=== PATIENT | female | born 1970 | race Asian ===

== ENCOUNTER 2017-07-12 16:59 | Inpatient (IN) | payer BC, OTHER ==
[~2017-07-12] VITALS: Ht 149.9 cm; Wt 48.3 kg
[2017-07-12] MEDS ORDERED: LORazepam 2 MG/ML, 1ML ONE ×3 (17:36→21:22)
[2017-07-12] MEDS: LORazepam 2 MG/ML, 1ML IVPush PRN ×8 (17:47→22:25)
[2017-07-12] MEDS ORDERED: THIAMINE 100 MG/ML, 2ML ONE (17:48)
[2017-07-12] MEDS ORDERED: ONDANSETRON 2MG/ML, 2ML ONE ×2 (17:48→18:11)
[2017-07-12] MEDS ORDERED: PANTOPRAZOLE 40 MG IV ONE (17:49)
[2017-07-12] MEDS ORDERED: ONDANSETRON 2MG/ML, 2ML IVPush ONE ×2 (18:00→18:30)
[2017-07-12] MEDS ORDERED: SODIUM CHLORIDE FLUSH 10ML SYR IVF ONE (18:00)
[2017-07-12] MEDS ORDERED: THIAMINE 100 MG in SODIUM CHLORIDE 0.9% 50 ML IVPB ONE (18:00)
[2017-07-12] MEDS ORDERED: PANTOPRAZOLE 40 MG IV IVPush ONE (18:00)
[2017-07-12] MEDS ORDERED: SODIUM CHLORIDE 0.9% 1,000ML IVBOLUS ONE (18:00)
[2017-07-12 18:21] LABS: BASOPHILS # (AUTO) 0.01 x10^3/uL (0-0.1); BASOPHILS % (AUTO) 0 % (0-1); EOSINOPHILS % (AUTO) 0 % (1-7); LYMPHOCYTES # (AUTO) 0.42 x10^3/uL (1-3.4); LYMPHOCYTES % (AUTO) 11 % (22-44); MD NO; MEAN CORPUSCULAR HEMOGLOBIN 35.4 pg (27.0-34.8); MEAN CORPUSCULAR HGB CONC 34.5 g/dL (32.4-35.8); MEAN CORPUSCULAR VOLUME 102.5 fL (80-100); MEAN PLATELET VOLUME 8.1 fL (7.4-10.4); MONOCYTES # (AUTO) 0.21 x10^3/uL (0.2-0.8); MONOCYTES % (AUTO) 6 % (2-9); NEUTROPHILS # (AUTO) 3.06 x10^3/uL (1.8-6.8); NEUTROPHILS % (AUTO) 83 % (42-75); PLATELET COUNT 107 x10^3/uL (130-400); RED BLOOD COUNT 4.29 x10^6/uL (3.82-5.3); RED CELL DISTRIBUTION WIDTH 16.3 % (9.6-15.2)
[2017-07-12 18:27] LABS: INTERNATIONAL NORMALIZED RATIO 0.94 (0.93-1.1); PROTHROMBIN TIME 9.8 Seconds (9.6-11.5)
[2017-07-12 18:31] LABS: ALANINE AMINOTRANSFERASE 181 U/L (12-78); ANION GAP 19 mmol/L (5-15); CALCIUM 8.4 mg/dL (8.5-10.1); CHLORIDE 100 mmol/L (98-107); CREATININE 0.77 mg/dL (0.55-1.02)
[2017-07-12 18:35] LABS: ALKALINE PHOSPHATASE 214 U/L (45-117); BILIRUBIN,TOTAL 1.5 mg/dL (0.2-1.0); TOTAL PROTEIN 8.5 g/dL (6.4-8.2)
[2017-07-12] MEDS ORDERED: SODIUM CHLORIDE 0.9% 1,000 ML IV ONE (19:29)
[2017-07-12] MEDS ORDERED: LABETALOL 5MG/ML, 20ML IVPush ONE (19:30)
[2017-07-12] MEDS ORDERED: PROMETHAZINE 25 MG/ML, 1ML ONE (21:21)
[2017-07-12] MEDS ORDERED: LABETALOL 5MG/ML, 20ML ONE (21:21)
[2017-07-12] MEDS ORDERED: MORPHINE SULFATE 4 MG/ML, 1ML ONE ×2 (21:22→22:41)
[2017-07-12] MEDS ORDERED: MORPHINE SULFATE 4 MG/ML, 1ML IVPush PRN (21:30)
[2017-07-12] MEDS ORDERED: PROMETHAZINE 25 MG/ML, 1ML IM ONE (21:30)
[2017-07-12] MEDS ORDERED: ASPIRIN 81 MG TABLET CHEW PO ONE (22:00)
[2017-07-12] MEDS ORDERED: POTASSIUM CHLORIDE 20 MEQ, MAGNESIUM SULFATE 2 GM, THIAMINE 200 MG, MVI ADULT 10 ML, FO... IV SCH (22:07)
[2017-07-12] MEDS ORDERED: ONDANSETRON 2MG/ML, 2ML IVPush PRN (22:30)
[2017-07-12] MEDS ORDERED: BISACODYL 10 MG SUPP PR PRN (22:30)
[2017-07-12] MEDS ORDERED: hydrALAzine 20 MG/ML, 1ML IVPush PRN (22:30)
[2017-07-12] MEDS ORDERED: ASPIRIN 81 MG TABLET CHEW ONE (22:33)
[2017-07-12] MEDS: morphine SULFATE 10 MG/ML, 1ML IVPush PRN (22:38)
[2017-07-12 22:55] LABS: FOLATE LEVEL 11.6 ng/mL (3.1-17.5)
[2017-07-12 23:00] VITALS: BP 156/102
[2017-07-12 23:46] VITALS: BP 136/104
[2017-07-13] MEDS ORDERED: LORazepam 2 MG/ML, 1ML IVPush PRN
[2017-07-13] MEDS: CHLORDIAZEPOXIDE 25 MG CAPSULE PO PRN ×2 (00:12→07:47)
[2017-07-13 01:35] VITALS: BP 121/85
[2017-07-13] MEDS: morphine SULFATE 10 MG/ML, 1ML IVPush PRN (03:53)
[2017-07-13 05:14] LABS: MEAN CORPUSCULAR HGB CONC 34.6 g/dL (32.4-35.8); MEAN CORPUSCULAR VOLUME 101.2 fL (80-100); MEAN PLATELET VOLUME 7.9 fL (7.4-10.4); PLATELET COUNT 93 x10^3/uL (130-400); RED BLOOD COUNT 3.46 x10^6/uL (3.82-5.3); RED CELL DISTRIBUTION WIDTH 16.4 % (9.6-15.2)
[2017-07-13 05:23] LABS: ANION GAP 10 mmol/L (5-15); CALCIUM 8.3 mg/dL (8.5-10.1); CHLORIDE 110 mmol/L (98-107)
[2017-07-13 05:29] LABS: ALANINE AMINOTRANSFERASE 136 U/L (12-78); ALBUMIN 3.3 g/dL (3.4-5.0); ALKALINE PHOSPHATASE 170 U/L (45-117); BILIRUBIN,TOTAL 1.4 mg/dL (0.2-1.0); CREATININE 0.56 mg/dL (0.55-1.02)
[2017-07-13 05:32] VITALS: BP 124/90
[2017-07-13] MEDS: LORazepam 2 MG/ML, 1ML IVPush PRN (05:37)
[2017-07-13 06:03] LABS: BASOPHILS # (AUTO) 0.01 x10^3/uL (0-0.1); BASOPHILS % (AUTO) 0 % (0-1); EOSINOPHILS % (AUTO) 0 % (1-7); LYMPHOCYTES # (AUTO) 1.04 x10^3/uL (1-3.4); LYMPHOCYTES % (AUTO) 26 % (22-44); MONOCYTES # (AUTO) 0.38 x10^3/uL (0.2-0.8); MONOCYTES % (AUTO) 9 % (2-9); NEUTROPHILS # (AUTO) 2.63 x10^3/uL (1.8-6.8); NEUTROPHILS % (AUTO) 65 % (42-75)
[2017-07-13 06:32] LABS: MD SCAN
[2017-07-13 07:10] VITALS: BP 116/80
[2017-07-13] MEDS ORDERED: LACTATED RINGERS 1,000 ML IV SCH (08:30)
[2017-07-13] MEDS ORDERED: LORazepam 2 MG/ML, 1ML IV PRN ×3 (08:30)
[2017-07-13] MEDS ORDERED: LORazepam 1MG TABLET PO PRN ×3 (08:30)
[2017-07-13] MEDS ORDERED: LORazepam 0.5MG TABLET PO PRN (08:30)
[2017-07-13] MEDS: LORazepam 2 MG/ML, 1ML IV PRN ×2 (10:29→10:35)
[2017-07-13] MEDS ORDERED: POTASSIUM CHLORIDE 20 MEQ, MAGNESIUM SULFATE 2 GM, THIAMINE 200 MG, MVI ADULT 10 ML, FO... IV SCH (22:07)
== END 2017-07-13 11:00 | disposition left against medical advice (07) | DRG 432 ==
LOC: ED 17:50 → EDIP 21:32 → 4NOR 23:00
PROVIDERS: ADMIT Internal Medicine; ATTEND Internal Medicine
DX: K70.10 Alcoholic hepatitis without ascites (principal); K85.20 Alcohol induced acute pancreatitis without necrosis or infection; D69.6 Thrombocytopenia, unspecified; E87.2 Acidosis; E87.1 Hypo-osmolality and hyponatremia; I16.9 Hypertensive crisis, unspecified; F17.210 Nicotine dependence, cigarettes, uncomplicated; F10.10 Alcohol abuse, uncomplicated; D75.89 Other specified diseases of blood and blood-forming organs; Z53.21 Procedure and treatment not carried out due to patient leaving prior to being seen by health care provider; R73.9 Hyperglycemia, unspecified; R07.2 Precordial pain; I10 Essential (primary) hypertension; N28.89 Other specified disorders of kidney and ureter; Z79.82 Long term (current) use of aspirin; Z88.5 Allergy status to narcotic agent
CPT/HCPCS: 36415; 71045; 76700; 80053; 82607; 82746; 83690; 84484; 84703; 85025; 85610; 85730; 86850; 86900; 93005; 96361; 96365; 96372; 96375; 96376; J2405; J2550; J3411; J3475; J3480; J7042; C9113; J2060; J2270; J7030; J7120

== ENCOUNTER 2017-12-09 15:30 | Inpatient (IN) | payer MEDICAID ==
[~2017-12-09] VITALS: Ht 149.9 cm; Wt 49.7 kg
[2017-12-09] MEDS ORDERED: LORazepam 2 MG/ML, 1ML ONE ×2 (15:44→16:44)
[2017-12-09] MEDS: LORazepam 2 MG/ML, 1ML IVPush PRN ×2 (15:54→16:46)
[2017-12-09] MEDS ORDERED: PLEASE ENTER HEIGHT AND WEIGHT MC SCH (16:00)
[2017-12-09] MEDS ORDERED: SODIUM CHLORIDE 0.9% 1,000ML IVBOLUS ONE (16:00)
[2017-12-09] MEDS ORDERED: SODIUM CHLORIDE FLUSH 10ML SYR IVF ONE (16:00)
[2017-12-09 16:03] LABS: ALBUMIN 4.6 g/dL (3.4-5.0); CHLORIDE 93 mmol/L (98-107)
[2017-12-09 16:09] LABS: ALANINE AMINOTRANSFERASE 154 U/L (12-78); ALKALINE PHOSPHATASE 150 U/L (45-117); BILIRUBIN,TOTAL 1.6 mg/dL (0.2-1.0); TOTAL PROTEIN 9.3 g/dL (6.4-8.2)
[2017-12-09 16:17] LABS: ANION GAP 29 mmol/L (5-15); CALCIUM 7.6 mg/dL (8.5-10.1); CREATININE 1.31 mg/dL (0.55-1.02)
[2017-12-09 16:56] LABS: O2 FLOW ROOM AIR L/min
[2017-12-09 16:59] LABS: MEAN CORPUSCULAR HEMOGLOBIN 38.6 pg (27.0-34.8); MEAN CORPUSCULAR HGB CONC 33.1 g/dL (32.4-35.8); MEAN CORPUSCULAR VOLUME 116.7 fL (80-100); MEAN PLATELET VOLUME 8.9 fL (7.4-10.4); PLATELET COUNT 134 x10^3/uL (130-400); RED BLOOD COUNT 3.66 x10^6/uL (3.82-5.3); RED CELL DISTRIBUTION WIDTH 20.3 % (9.6-15.2)
[2017-12-09 17:01] LABS: MD YES
[2017-12-09 17:05] LABS: BAND#(MANUAL) 1.77 x10^3/uL; BANDS%(MANUAL) 17 % (0-7); LYMPH#(MANUAL) 1.25 x10^3/uL (1-3.4); LYMPHS% (MANUAL) 12 % (22-44); MONOS#(MANUAL) 0.52 x10^3/uL (0.3-2.7); MONOS% (MANUAL) 5 % (2-9)
[2017-12-09 17:06] LABS: MYELOCYTES% (MANUAL) 1 % (0-0); SEG#(MANUAL) 6.76 x10^3/uL (1.8-6.8); SEGS% (MANUAL) 65 % (42-75)
[2017-12-09 17:07] LABS: NRBC % (MANUAL) 1 % (0-1)
[2017-12-09 17:09] LABS: ANISOCYTOSIS 1+; POLYCHROMASIA 1+
[2017-12-09 17:10] LABS: <PLATELET ESTIMATE> ADEQUATE; <PLT MORPHOLOGY> NORMAL PLT MORPH
[2017-12-09] MEDS ORDERED: D5%-0.9% NACL 1,000 ML IV ONE (17:30)
[2017-12-09] MEDS ORDERED: THIAMINE 100MG TABLET PO ONE (17:30)
[2017-12-09] MEDS ORDERED: FOLIC ACID 1 MG TABLET PO ONE (17:30)
[2017-12-09] MEDS ORDERED: FOLIC ACID 1 MG in DEXTROSE 5% 50 ML IV SCH (17:30)
[2017-12-09] MEDS ORDERED: MAGNESIUM SULFATE 1 GM, THIAMINE 100 MG, FOLIC ACID 1 MG, MVI ADULT 10 ML in SODIUM CHL... IV ONE (17:30)
[2017-12-09] MEDS ORDERED: SODIUM CHLORIDE FLUSH 10ML SYR IVF PRN (17:30)
[2017-12-09 17:31] LABS: ACETONE, SERUM Large (80mg/dL) mg/dL (Negative)
[2017-12-09] MEDS: SODIUM BICARBONATE 8.4% 150 MEQ in DEXTROSE 5% 1,000 ML IV SCH (18:00)
[2017-12-09] MEDS ORDERED: POLYETHYLENE GLYCOL 17 GM PACKET PO PRN (18:30)
[2017-12-09] MEDS ORDERED: BISACODYL 10 MG SUPP PR PRN (18:30)
[2017-12-09] MEDS: THIAMINE 100 MG, MVI ADULT 10 ML, FOLIC ACID 1 MG in D5%-0.9% NACL 1,000 ML IV SCH (18:51)
[2017-12-09] MEDS ORDERED: INSULIN LISPRO 100 UNITS/ML, PEN SQ-INSULIN SCH (19:00)
[2017-12-09] MEDS ORDERED: THIAMINE 100MG TABLET ONE (19:00)
[2017-12-09 19:02] LABS: ANION GAP 26 mmol/L (5-15); CALCIUM 6.6 mg/dL (8.5-10.1); CHLORIDE 98 mmol/L (98-107); CREATININE 1.13 mg/dL (0.55-1.02)
[2017-12-09 19:05] LABS: TROPONIN I < 0.015 ng/mL (0.000-0.045)
[2017-12-09 19:20] LABS: HEMOGLOBIN A1C 4.3 % (4.2-6.3)
[2017-12-09] MEDS ORDERED: CALCIUM GLUCONATE 4.6 MEQ in SODIUM CHLORIDE 0.9% 50 ML IV ONE (20:00)
[2017-12-09] MEDS ORDERED: REGULAR INSULIN 62.5 UNITS in SODIUM CHLORIDE 0.9% 249.375 ML IV PRN (20:00)
[2017-12-09] MEDS: ERTAPENEM 1 GM in SODIUM CHLORIDE 0.9% 50 ML IV SCH (20:17)
[2017-12-09] MEDS: SODIUM CHLORIDE 0.9% 1,000 ML IV SCH (20:36)
[2017-12-09] MEDS: hydrALAzine 20 MG/ML, 1ML IVPush PRN (21:40)
[2017-12-09 21:42] LABS: INTERNATIONAL NORMALIZED RATIO 0.95 (0.93-1.1); PROTHROMBIN TIME 9.9 Seconds (9.6-11.5)
[2017-12-09 22:35] LABS: ANION GAP 24 mmol/L (5-15); CALCIUM 7.2 mg/dL (8.5-10.1); CHLORIDE 101 mmol/L (98-107); CREATININE 1.22 mg/dL (0.55-1.02)
[2017-12-09] MEDS: HEPARIN 5,000 UNITS/ML, 1ML SQ SCH (22:35)
[2017-12-10] MEDS: SODIUM CHLORIDE 0.9% 1,000 ML IV SCH ×2 (03:00→09:40)
[2017-12-10 04:00] VITALS: BP 124/76
[2017-12-10] MEDS: HEPARIN 5,000 UNITS/ML, 1ML SQ SCH ×3 (04:00→21:06)
[2017-12-10 04:05] LABS: ALANINE AMINOTRANSFERASE 94 U/L (12-78); ALKALINE PHOSPHATASE 92 U/L (45-117); ANION GAP 15 mmol/L (5-15); BILIRUBIN,TOTAL 1.3 mg/dL (0.2-1.0); CALCIUM 7.1 mg/dL (8.5-10.1); CHLORIDE 104 mmol/L (98-107); CREATININE 1.26 mg/dL (0.55-1.02); THYROID STIMULATING HORMONE 0.472 mIU/L (0.358-3.740); TOTAL PROTEIN 6.5 g/dL (6.4-8.2)
[2017-12-10] MEDS ORDERED: SODIUM PHOSPHATE 20 MMOL in SODIUM CHLORIDE 0.9% 500 ML IV ONE (05:00)
[2017-12-10 06:17] LABS: MEAN CORPUSCULAR HEMOGLOBIN 38.5 pg (27.0-34.8); MEAN CORPUSCULAR VOLUME 113.3 fL (80-100); RED BLOOD COUNT 2.71 x10^6/uL (3.82-5.3)
[2017-12-10] MEDS: SODIUM BICARBONATE 8.4% 150 MEQ in DEXTROSE 5% 1,000 ML IV SCH (06:36)
[2017-12-10 06:39] LABS: MD YES
[2017-12-10 06:40] LABS: PLATELET COUNT 65 x10^3/uL (130-400)
[2017-12-10 06:42] LABS: BAND#(MANUAL) 1.18 x10^3/uL; BANDS%(MANUAL) 20 % (0-7); LYMPH#(MANUAL) 0.59 x10^3/uL (1-3.4); LYMPHS% (MANUAL) 10 % (22-44); MONOS#(MANUAL) 0.47 x10^3/uL (0.3-2.7); MONOS% (MANUAL) 8 % (2-9); SEG#(MANUAL) 3.66 x10^3/uL (1.8-6.8); SEGS% (MANUAL) 62 % (42-75)
[2017-12-10 06:43] LABS: ANISOCYTOSIS 1+; POLYCHROMASIA 1+
[2017-12-10 06:44] LABS: <PLATELET ESTIMATE> DECREASED; <PLT MORPHOLOGY> NORMAL PLT MORPH
[2017-12-10] MEDS: PANTOPRAZOLE 40 MG IV IVPush SCH (08:17)
[2017-12-10] MEDS ORDERED: POTASSIUM PHOSPHATE 44 MEQ in SODIUM CHLORIDE 0.9% 500 ML IV ONE (08:30)
[2017-12-10] MEDS ORDERED: MAGNESIUM SULFATE 4 GM in SODIUM CHLORIDE 0.9% 100 ML IV ONE (08:30)
[2017-12-10 08:55] LABS: FIO2 ROOM AIR %
[2017-12-10] MEDS ORDERED: MAGNESIUM SULFATE PMX 4GM/100M 100 ML IV ONE (09:00)
[2017-12-10 09:08] LABS: ANION GAP 12 mmol/L (5-15); CALCIUM 6.7 mg/dL (8.5-10.1); CHLORIDE 108 mmol/L (98-107); CREATININE 1.16 mg/dL (0.55-1.02)
[2017-12-10] MEDS ORDERED: POTASSIUM CHLORIDE 40 MEQ in SODIUM CHLORIDE 0.9% 1,000 ML IV SCH (11:43)
[2017-12-10] MEDS ORDERED: PROPOFOL 10 MG/ML, 20ML ONE (11:44)
[2017-12-10] MEDS ORDERED: GLYCOPYRROLATE 0.2MG/1ML, 5ML ONE (11:44)
[2017-12-10] MEDS ORDERED: NEOSTIGMINE 1 MG/ML, 10ML ONE (11:44)
[2017-12-10] MEDS ORDERED: ROCURONIUM 10 MG/ML,10ML ONE (11:44)
[2017-12-10] MEDS ORDERED: PHENYLEPHRINE 10 MG/ML ONE (11:44)
[2017-12-10] MEDS ORDERED: ONDANSETRON 2MG/ML, 2ML ONE (11:44)
[2017-12-10] MEDS ORDERED: MIDAZOLAM 1 MG/ML, 2ML ONE (11:46)
[2017-12-10] MEDS ORDERED: FENTANYL PF 250 MCG/5ML ONE (11:47)
[2017-12-10] MEDS ORDERED: hydrALAzine 20 MG/ML, 1ML IV PRN (12:30)
[2017-12-10] MEDS ORDERED: OXYcodone 5 MG/5 ML ORAL.SOL UDC PO PRN (12:30)
[2017-12-10] MEDS ORDERED: HALOPERIDOL 5 MG/ML IV PRN (12:30)
[2017-12-10] MEDS ORDERED: FENTANYL PF 100 MCG/2ML IV PRN (12:30)
[2017-12-10] MEDS ORDERED: MEPERIDINE/PF 25MG/0.5ML IVPush PRN (12:30)
[2017-12-10] MEDS ORDERED: HYDROmorphone 1 MG/ML, 1ML IV PRN (12:30)
[2017-12-10] MEDS ORDERED: PROMETHAZINE 25 MG/ML, 1ML IV PRN (12:30)
[2017-12-10] MEDS ORDERED: LABETALOL 5MG/ML, 20ML IV PRN (12:30)
[2017-12-10] MEDS ORDERED: LORazepam 2 MG/ML, 1ML IVPush PRN (12:30)
[2017-12-10] MEDS ORDERED: OMNIPAQUE 350 MG/ML, 50 ML BOTTLE ONE (13:00)
[2017-12-10] MEDS ORDERED: INDOMETHACIN 50 MG SUPP.RECT ONE (13:07)
[2017-12-10] MEDS ORDERED: INDOMETHACIN 50 MG SUPP.RECT PR ONE (13:30)
[2017-12-10] MEDS: POTASSIUM CHLORIDE 40 MEQ in SODIUM CHLORIDE 0.9% 1,000 ML IV SCH ×2 (14:37→21:41)
[2017-12-10] MEDS: hydrALAzine 20 MG/ML, 1ML IVPush PRN (16:16)
[2017-12-10 18:47] LABS: ANION GAP 13 mmol/L (5-15); CALCIUM 6.4 mg/dL (8.5-10.1); CHLORIDE 113 mmol/L (98-107); CREATININE 1.13 mg/dL (0.55-1.02)
[2017-12-10 18:48] LABS: MICROSCOPIC INDICATED
[2017-12-10 18:57] LABS: AMPHETAMINE SCREEN, URINE Negative (Negative); BARBITURATE SCREEN, URINE Negative (Negative); BENZODIAZEPINE SCREEN, URINE Positive (Negative); CANNABINOID SCREEN, URINE Negative (Negative); COCAINE SCREEN, URINE Negative (Negative); METHADONE SCREEN, URINE Negative (Negative); OPIATE SCREEN, URINE Negative (Negative)
[2017-12-10] MEDS: ERTAPENEM 1 GM in SODIUM CHLORIDE 0.9% 50 ML IV SCH (21:05)
[2017-12-10] MEDS: morphine SULFATE 10 MG/ML, 1ML IVPush PRN (23:02)
[2017-12-11] MEDS: morphine SULFATE 10 MG/ML, 1ML IVPush PRN ×2 (00:12→17:49)
[2017-12-11 04:00] VITALS: BP 121/89
[2017-12-11] MEDS: HEPARIN 5,000 UNITS/ML, 1ML SQ SCH (04:00)
[2017-12-11 04:43] LABS: MEAN CORPUSCULAR HEMOGLOBIN 39.6 pg (27.0-34.8); MEAN CORPUSCULAR HGB CONC 34.8 g/dL (32.4-35.8); RED BLOOD COUNT 2.37 x10^6/uL (3.82-5.3); RED CELL DISTRIBUTION WIDTH 20.5 % (9.6-15.2)
[2017-12-11 04:47] LABS: ALANINE AMINOTRANSFERASE 72 U/L (12-78); ALBUMIN 2.5 g/dL (3.4-5.0); ANION GAP 9 mmol/L (5-15); CALCIUM 6.5 mg/dL (8.5-10.1); CHLORIDE 118 mmol/L (98-107); CREATININE 1.04 mg/dL (0.55-1.02)
[2017-12-11 04:49] LABS: ALKALINE PHOSPHATASE 105 U/L (45-117); BILIRUBIN,TOTAL 0.6 mg/dL (0.2-1.0); TOTAL PROTEIN 5.6 g/dL (6.4-8.2)
[2017-12-11 04:56] LABS: MD YES; MEAN PLATELET VOLUME 8.6 fL (7.4-10.4); PLATELET COUNT 50 x10^3/uL (130-400)
[2017-12-11 05:01] LABS: BAND#(MANUAL) 0.41 x10^3/uL; BANDS%(MANUAL) 9 % (0-7); LYMPH#(MANUAL) 0.95 x10^3/uL (1-3.4); LYMPHS% (MANUAL) 21 % (22-44); MONOS#(MANUAL) 0.41 x10^3/uL (0.3-2.7); MONOS% (MANUAL) 9 % (2-9); SEG#(MANUAL) 2.75 x10^3/uL (1.8-6.8); SEGS% (MANUAL) 61 % (42-75)
[2017-12-11 05:02] LABS: <PLATELET ESTIMATE> DECREASED; <PLT MORPHOLOGY> NORMAL PLT MORPH; ANISOCYTOSIS 1+; POLYCHROMASIA 1+
[2017-12-11] MEDS: THIAMINE 100 MG, MVI ADULT 10 ML, FOLIC ACID 1 MG in D5%-0.9% NACL 1,000 ML IV SCH (05:37)
[2017-12-11] MEDS: PANTOPRAZOLE 40 MG IV IVPush SCH (07:30)
[2017-12-11 08:30] VITALS: BP 154/90
[2017-12-11 10:35] LABS: HIT RESULT NEGATIVE (NEGATIVE)
[2017-12-11] MEDS: ACETAMINOPHEN 325 MG TABLET PO PRN (12:05)
[2017-12-11 14:30] VITALS: BP 149/86
[2017-12-11] MEDS: hydrALAzine 20 MG/ML, 1ML IVPush PRN (17:42)
[2017-12-11 19:35] VITALS: BP 165/97
[2017-12-11] MEDS: ERTAPENEM 1 GM in SODIUM CHLORIDE 0.9% 50 ML IV SCH (20:18)
[2017-12-11] MEDS: ONDANSETRON 2MG/ML, 2ML IVPush PRN (22:27)
[2017-12-12] VITALS (7 sets, daily range): BP systolic 138–185; BP diastolic 85–108
[2017-12-12] MEDS: hydrALAzine 20 MG/ML, 1ML IVPush PRN ×2 (04:07→10:56)
[2017-12-12] MEDS ORDERED: THIAMINE 100 MG, MVI ADULT 10 ML, FOLIC ACID 1 MG in D5%-0.9% NACL 1,000 ML IV SCH (05:00)
[2017-12-12 05:28] LABS: ALBUMIN 2.5 g/dL (3.4-5.0); ANION GAP 8 mmol/L (5-15); CHLORIDE 114 mmol/L (98-107)
[2017-12-12 05:30] LABS: MEAN CORPUSCULAR HGB CONC 34.9 g/dL (32.4-35.8); MEAN CORPUSCULAR VOLUME 114.6 fL (80-100); MEAN PLATELET VOLUME 8.5 fL (7.4-10.4); PLATELET COUNT 59 x10^3/uL (130-400); RED CELL DISTRIBUTION WIDTH 20.2 % (9.6-15.2)
[2017-12-12 05:35] LABS: ALANINE AMINOTRANSFERASE 60 U/L (12-78); ALKALINE PHOSPHATASE 97 U/L (45-117); BILIRUBIN,TOTAL 0.6 mg/dL (0.2-1.0); CALCIUM 7.4 mg/dL (8.5-10.1); CREATININE 0.75 mg/dL (0.55-1.02); TOTAL PROTEIN 5.6 g/dL (6.4-8.2)
[2017-12-12 06:24] LABS: MD YES
[2017-12-12 06:26] LABS: SEG#(MANUAL) 2.57 x10^3/uL (1.8-6.8); SEGS% (MANUAL) 66 % (42-75)
[2017-12-12 06:27] LABS: ANISOCYTOSIS 1+; BAND#(MANUAL) 0.08 x10^3/uL; BANDS%(MANUAL) 2 % (0-7); LYMPH#(MANUAL) 0.82 x10^3/uL (1-3.4); LYMPHS% (MANUAL) 21 % (22-44); MONOS#(MANUAL) 0.43 x10^3/uL (0.3-2.7); MONOS% (MANUAL) 11 % (2-9)
[2017-12-12 06:28] LABS: <PLATELET ESTIMATE> DECREASED; <PLT MORPHOLOGY> NORMAL PLT MORPH
[2017-12-12] MEDS: morphine SULFATE 10 MG/ML, 1ML IVPush PRN ×3 (07:58→21:04)
[2017-12-12] MEDS: PANTOPRAZOLE 40 MG IV IVPush SCH (07:58)
[2017-12-12] MEDS ORDERED: POTASSIUM PHOSPHATE 44 MEQ in SODIUM CHLORIDE 0.9% 500 ML IV ONE (09:30)
[2017-12-12] MEDS: HEPARIN 5,000 UNITS/ML, 1ML SQ SCH (21:03)
[2017-12-12] MEDS: ONDANSETRON 2MG/ML, 2ML IVPush PRN (21:04)
[2017-12-13] VITALS (8 sets, daily range): BP systolic 147–193; BP diastolic 83–105
[2017-12-13] MEDS: hydrALAzine 20 MG/ML, 1ML IVPush PRN ×2 (00:38→08:51)
[2017-12-13] MEDS: THIAMINE 200 MG, MVI ADULT 10 ML, FOLIC ACID 1 MG in D5%-0.9% NACL 1,000 ML IV SCH (04:40)
[2017-12-13 04:56] LABS: ALKALINE PHOSPHATASE 98 U/L (45-117); BILIRUBIN,TOTAL 0.6 mg/dL (0.2-1.0); TOTAL PROTEIN 5.8 g/dL (6.4-8.2)
[2017-12-13 05:16] LABS: ALANINE AMINOTRANSFERASE 58 U/L (12-78); ALBUMIN 2.6 g/dL (3.4-5.0); ANION GAP 8 mmol/L (5-15); CALCIUM 7.6 mg/dL (8.5-10.1); CHLORIDE 113 mmol/L (98-107); CREATININE 0.69 mg/dL (0.55-1.02)
[2017-12-13] MEDS: HEPARIN 5,000 UNITS/ML, 1ML SQ SCH ×3 (05:20→22:00)
[2017-12-13] MEDS: ONDANSETRON 2MG/ML, 2ML IVPush PRN ×2 (05:26→19:49)
[2017-12-13] MEDS: morphine SULFATE 10 MG/ML, 1ML IVPush PRN ×3 (08:27→19:49)
[2017-12-13] MEDS: OMEPRAZOLE 20 MG CAPSULE.DR PO SCH (08:27)
[2017-12-13] MEDS ORDERED: LISINOPRIL 10 MG TABLET PO SCH (09:00)
[2017-12-13] MEDS ORDERED: POTASSIUM CHLORIDE 40 MEQ in SODIUM CHLORIDE 0.9% 500 ML IV ONE ×2 (09:00→17:00)
[2017-12-13] MEDS: FOLIC ACID 1 MG TABLET PO SCH (09:40)
[2017-12-13] MEDS: MULTIVITAMIN 1 TABLET PO SCH (09:41)
[2017-12-14] MEDS: morphine SULFATE 10 MG/ML, 1ML IVPush PRN ×3 (01:12→15:35)
[2017-12-14 01:25] VITALS: BP 168/96
[2017-12-14 02:18] VITALS: BP 163/93
[2017-12-14 05:21] LABS: CHLORIDE 114 mmol/L (98-107)
[2017-12-14 05:26] LABS: ANION GAP 9 mmol/L (5-15); CALCIUM 7.6 mg/dL (8.5-10.1); CREATININE 0.72 mg/dL (0.55-1.02)
[2017-12-14] MEDS: THIAMINE 200 MG, MVI ADULT 10 ML, FOLIC ACID 1 MG in D5%-0.9% NACL 1,000 ML IV SCH (05:28)
[2017-12-14] MEDS: HEPARIN 5,000 UNITS/ML, 1ML SQ SCH ×3 (05:28→23:13)
[2017-12-14] MEDS ORDERED: MAGNESIUM SULFATE PMX 2GM/50ML 50 ML IV ONE (07:00)
[2017-12-14 07:21] VITALS: BP 186/114
[2017-12-14 08:17] VITALS: BP 168/92
[2017-12-14] MEDS: MAGNESIUM CHLORIDE 64 MG TABLET.DR PO SCH ×2 (08:20→19:35)
[2017-12-14] MEDS: OMEPRAZOLE 20 MG CAPSULE.DR PO SCH (08:20)
[2017-12-14] MEDS: FOLIC ACID 1 MG TABLET PO SCH (08:21)
[2017-12-14] MEDS: LISINOPRIL 20 MG TABLET PO SCH (08:21)
[2017-12-14] MEDS: MULTIVITAMIN 1 TABLET PO SCH (08:21)
[2017-12-14 12:48] VITALS: BP 137/76
[2017-12-14 19:27] VITALS: BP 184/104
[2017-12-15 01:24] VITALS: BP 167/93
[2017-12-15] MEDS: THIAMINE 200 MG, MVI ADULT 10 ML, FOLIC ACID 1 MG in D5%-0.9% NACL 1,000 ML IV SCH (04:34)
[2017-12-15] MEDS ORDERED: LISI2.5T PO (04:44)
[2017-12-15] MEDS ORDERED: amlodipine (04:44)
[2017-12-15] MEDS: ACETAMINOPHEN 325 MG TABLET PO PRN (04:49)
[2017-12-15 07:32] VITALS: BP 170/94
[2017-12-15] MEDS: MAGNESIUM CHLORIDE 64 MG TABLET.DR PO SCH (08:26)
[2017-12-15] MEDS: MULTIVITAMIN 1 TABLET PO SCH (08:26)
[2017-12-15] MEDS: OMEPRAZOLE 20 MG CAPSULE.DR PO SCH (08:26)
[2017-12-15] MEDS: HEPARIN 5,000 UNITS/ML, 1ML SQ SCH ×2 (08:27→13:10)
[2017-12-15] MEDS: LISINOPRIL 20 MG TABLET PO SCH (08:27)
[2017-12-15] MEDS: FOLIC ACID 1 MG TABLET PO SCH (08:27)
[2017-12-15] MEDS ORDERED: MULT1TAB60 PO (11:48)
[2017-12-15] MEDS ORDERED: AMLO5TAB2 PO (11:48)
[2017-12-15] MEDS ORDERED: OMEP-110 PO (11:48)
[2017-12-15] MEDS ORDERED: THIA100T10 PO (11:48)
[2017-12-15] MEDS ORDERED: LISI-170 PO (11:48)
[2017-12-15] MEDS ORDERED: FOLI-17 PO (11:48)
[2017-12-15] MEDS ORDERED: AMLODIPINE 5 MG TABLET PO SCH (12:00)
[2017-12-15 12:18] VITALS: BP 172/95
[2017-12-15 12:26] VITALS: BP 168/89
== END 2017-12-15 13:54 | disposition home or self-care (01) | DRG 432 ==
LOC: ED 16:08 → EDIP 17:20 → CCU 19:45 → 3NE 12-11 12:37 → DCLOUNGE 12-15 13:32
PROVIDERS: ADMIT Hospitalist; ATTEND Hospitalist
PROC: BF141ZZ Fluoroscopy of Gallbladder, Bile Ducts and Pancreatic Ducts using Low Osmolar Contrast (ICD-10-PCS; 2017-12-10)
PROC: 0DJ08ZZ Inspection of Upper Intestinal Tract, Via Natural or Artificial Opening Endoscopic (ICD-10-PCS; 2017-12-10)
PROC: 0FJB8ZZ Inspection of Hepatobiliary Duct, Via Natural or Artificial Opening Endoscopic (ICD-10-PCS; principal; 2017-12-10 13:15)
DX: K70.10 Alcoholic hepatitis without ascites (principal); N17.0 Acute kidney failure with tubular necrosis; K85.20 Alcohol induced acute pancreatitis without necrosis or infection; E87.2 Acidosis; E87.1 Hypo-osmolality and hyponatremia; F10.239 Alcohol dependence with withdrawal, unspecified; N39.0 Urinary tract infection, site not specified; K76.0 Fatty (change of) liver, not elsewhere classified; I10 Essential (primary) hypertension; F17.200 Nicotine dependence, unspecified, uncomplicated; R73.9 Hyperglycemia, unspecified; D75.89 Other specified diseases of blood and blood-forming organs; D72.829 Elevated white blood cell count, unspecified; F41.9 Anxiety disorder, unspecified; E88.89 Other specified metabolic disorders; D69.6 Thrombocytopenia, unspecified; R74.0 Nonspecific elevation of levels of transaminase and lactic acid dehydrogenase [LDH]; K82.8 Other specified diseases of gallbladder; Z79.899 Other long term (current) drug therapy; Z88.5 Allergy status to narcotic agent
CPT/HCPCS: 36415; 36600; 74328; 99285; J3490; J7042; 71045; 74176; 76700; 80048; 80053; 80307; 81001; 82010; 82607; 82803; 82962; 83036; 83605; 83690; 83735; 84100; 84443; 84478; 84484; 84703; 85025; 85610; 86022; 86706; 86803; 87040; 87081; 87340; 93005; J0610; J1335; J1644; J1815; J2250; J2405; J2704; J2710; J3010; J3411; J3480; J7070; Q9967; C1769; C9113; J0360; J2060; J2270; J2370; J3475; J7030; J7040; J7050

== ENCOUNTER 2019-04-29 12:09 | Inpatient (IN) | payer MEDICAID ==
[~2019-04-29] VITALS: Ht 149.9 cm; Wt 45.6 kg
[~2019-04-29 12:09] MED LIST: AMLO-150 PO; FOLI-17 PO; LISI-170 PO; LISI2.5T PO; MULT1TAB60 PO; OMEP-110 PO; THIA100T10 PO; amlodipine
[2019-04-29 13:40] LABS: BASOPHILS # (AUTO) 0.02 x10^3/uL (0-0.1); BASOPHILS % (AUTO) 0 % (0-1); EOSINOPHILS % (AUTO) 0 % (1-7); LYMPHOCYTES # (AUTO) 1.41 x10^3/uL (1-3.4); LYMPHOCYTES % (AUTO) 19 % (22-44); MD NO; MEAN CORPUSCULAR HEMOGLOBIN 33.8 pg (27.0-34.8); MEAN CORPUSCULAR HGB CONC 33.8 g/dL (32.4-35.8); MEAN CORPUSCULAR VOLUME 100.2 fL (80-100); MEAN PLATELET VOLUME 7.2 fL (7.4-10.4); MONOCYTES # (AUTO) 0.31 x10^3/uL (0.2-0.8); MONOCYTES % (AUTO) 4 % (2-9); NEUTROPHILS # (AUTO) 5.86 x10^3/uL (1.8-6.8); NEUTROPHILS % (AUTO) 77 % (42-75); PLATELET COUNT 239 x10^3/uL (130-400); RED BLOOD COUNT 4.19 x10^6/uL (3.82-5.3); RED CELL DISTRIBUTION WIDTH 13.9 % (9.6-15.2)
[2019-04-29 13:49] LABS: ALANINE AMINOTRANSFERASE 89 U/L (12-78); ALBUMIN 3.7 g/dL (3.4-5.0); ANION GAP 16 mmol/L (5-15); CHLORIDE 101 mmol/L (98-107)
[2019-04-29 13:51] LABS: ALKALINE PHOSPHATASE 96 U/L (45-117); BILIRUBIN,TOTAL 0.6 mg/dL (0.2-1.0); TOTAL PROTEIN 7.5 g/dL (6.4-8.2)
--- NOTE | 2019-04-29 13:54 | NUR ---
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
--- NOTE | 2019-04-29 14:01 | NUR ---
PT HAS CO ABDOMINAL PAIN AND N/V FOR 1 WEEK. PT STATES SYMPTOMS WORSENED TODAY, MID ABDOMINAL PAIN W PALPITATION. PT AMBULATED TO BATHROOM FOR UA. DENIES SOB, CP.
[2019-04-29] MEDS ORDERED: HYDROmorphone 2 MG/ML, 1ML ONE ×3 (14:20→22:33)
[2019-04-29] MEDS ORDERED: ONDANSETRON 2MG/ML, 2ML ONE (14:20)
[2019-04-29] MEDS ORDERED: HYDROmorphone 2 MG/ML, 1ML IVPush PRN (14:30)
[2019-04-29] MEDS ORDERED: ONDANSETRON 2MG/ML, 2ML IVPush ONE (14:30)
[2019-04-29] MEDS ORDERED: SODIUM CHLORIDE 0.9% 1,000ML IVBOLUS ONE (14:30)
[2019-04-29] MEDS ORDERED: SODIUM CHLORIDE FLUSH 10ML SYR IVF ONE (14:30)
[2019-04-29 14:32] LABS: MICROSCOPIC INDICATED
[2019-04-29 14:44] LABS: CULTURE INDICATED? NO
[2019-04-29] MEDS ORDERED: BUTALB/APAP/CAFFEINE 50MG/325MG/40MG PO PRN (15:00)
[2019-04-29] MEDS ORDERED: POLYETHYLENE GLYCOL 17 GM PACKET PO PRN (15:00)
[2019-04-29] MEDS ORDERED: GUAIFENESIN/DM 200-20MG, 10ML UDC PO PRN (15:00)
[2019-04-29] MEDS ORDERED: LABETALOL 5MG/ML, 20ML IVPush PRN (15:00)
[2019-04-29] MEDS: NICOTINE 21 MG/24 HR PATCH.TD24 TD SCH (15:00)
[2019-04-29] MEDS ORDERED: ONDANSETRON ODT 4 MG PO PRN (15:00)
--- NOTE | 2019-04-29 15:13 | NUR ---
THROUGHPUT RN: PT W/ MEDICAID SILVERSUMMIT INSURANCE. SPOKE W/ RERE FROM [facility] WHO DECLINED PT TRANSFER. SPOKE W/ MARIBEL AT [facility] WHO DECLINED TRANSFER. PSN FAXED TO [phone]. CONFIRMATION RECEIVED.
[2019-04-29] MEDS ORDERED: TRAZ-96 PO (15:21)
[2019-04-29] MEDS ORDERED: ALPR0.5T7 PO (15:21)
[2019-04-29] MEDS ORDERED: GABA300C10 PO (15:21)
--- NOTE | 2019-04-29 15:35 | NUR ---
REPORT TO VENITA
[2019-04-29] MEDS: D5%-0.45% NACL 1,000 ML IV SCH (16:08)
[2019-04-29] MEDS: KETOROLAC 30 MG/1 ML IV PRN ×2 (16:32→23:26)
[2019-04-29] MEDS: ONDANSETRON 2MG/ML, 2ML IVPush PRN ×2 (16:32→22:36)
[2019-04-29 16:37] VITALS: BP 159/86
[2019-04-29] MEDS: HYDROmorphone 1 MG/ML, 1ML INJ IV PRN ×2 (18:32→22:37)
[2019-04-29 18:53] VITALS: BP 124/77
[2019-04-29] MEDS: LACTULOSE 10 GM/15 ML UDC PO SCH (20:35)
[2019-04-29] MEDS: TRAZODONE 50MG TABLET PO PRN (20:35)
[2019-04-29] MEDS: BACLOFEN 10 MG TABLET PO PRN (20:38)
[2019-04-30 00:35] VITALS: BP 132/82
[2019-04-30] MEDS: D5%-0.45% NACL 1,000 ML IV SCH ×3 (00:57→20:24)
[2019-04-30] MEDS ORDERED: HYDROmorphone 2 MG/ML, 1ML ONE ×4 (02:16→15:39)
[2019-04-30] MEDS: HYDROmorphone 1 MG/ML, 1ML INJ IV PRN ×4 (02:21→15:42)
[2019-04-30] MEDS: ONDANSETRON 2MG/ML, 2ML IVPush PRN (04:38)
[2019-04-30 05:56] LABS: BASOPHILS # (AUTO) 0.01 x10^3/uL (0-0.1); BASOPHILS % (AUTO) 0 % (0-1); EOSINOPHILS # (AUTO) 0.01 x10^3/uL (0-0.4); EOSINOPHILS % (AUTO) 0 % (1-7); LYMPHOCYTES # (AUTO) 1.47 x10^3/uL (1-3.4); LYMPHOCYTES % (AUTO) 25 % (22-44); MD NO; MEAN CORPUSCULAR HEMOGLOBIN 33.5 pg (27.0-34.8); MEAN CORPUSCULAR HGB CONC 33.4 g/dL (32.4-35.8); MEAN CORPUSCULAR VOLUME 100.3 fL (80-100); MEAN PLATELET VOLUME 7.6 fL (7.4-10.4); MONOCYTES # (AUTO) 0.57 x10^3/uL (0.2-0.8); MONOCYTES % (AUTO) 10 % (2-9); NEUTROPHILS % (AUTO) 65 % (42-75); PLATELET COUNT 180 x10^3/uL (130-400); RED BLOOD COUNT 3.84 x10^6/uL (3.82-5.3); RED CELL DISTRIBUTION WIDTH 14.2 % (9.6-15.2)
[2019-04-30 06:08] LABS: CHLORIDE 106 mmol/L (98-107)
[2019-04-30 06:12] LABS: ALBUMIN 3.3 g/dL (3.4-5.0); ANION GAP 8 mmol/L (5-15); CALCIUM 7.2 mg/dL (8.5-10.1); CREATININE 0.66 mg/dL (0.55-1.02)
[2019-04-30 06:15] VITALS: BP 185/108
[2019-04-30] MEDS: hydrALAzine 20 MG/ML, 1ML IVPush PRN (06:30)
[2019-04-30] MEDS ORDERED: CALCIUM GLUCONATE 4.6 MEQ in SODIUM CHLORIDE 0.9% 50 ML IV ONE (06:30)
[2019-04-30] MEDS ORDERED: POTASSIUM PHOSPHATE 44 MEQ in SODIUM CHLORIDE 0.9% 500 ML IV ONE (06:30)
[2019-04-30] MEDS: LACTULOSE 10 GM/15 ML UDC PO SCH ×2 (09:00→20:12)
[2019-04-30] MEDS: KETOROLAC 30 MG/1 ML IV PRN ×2 (09:14→20:11)
[2019-04-30 12:43] VITALS: BP 142/82
[2019-04-30] MEDS: NICOTINE 21 MG/24 HR PATCH.TD24 TD SCH (14:34)
[2019-04-30 18:35] VITALS: BP 156/89
[2019-04-30] MEDS: TRAZODONE 50MG TABLET PO PRN (20:12)
[2019-04-30] MEDS: BACLOFEN 10 MG TABLET PO PRN (20:12)
[2019-05-01 00:24] VITALS: BP 178/111
[2019-05-01] MEDS ORDERED: HYDROmorphone 2 MG/ML, 1ML ONE (00:41)
[2019-05-01] MEDS: HYDROmorphone 1 MG/ML, 1ML INJ IV PRN (00:44)
[2019-05-01] MEDS: hydrALAzine 20 MG/ML, 1ML IVPush PRN (00:45)
[2019-05-01 02:29] VITALS: BP 113/72
[2019-05-01 06:03] LABS: ALBUMIN 3.1 g/dL (3.4-5.0); ANION GAP 6 mmol/L (5-15); CALCIUM 7.6 mg/dL (8.5-10.1); CHLORIDE 109 mmol/L (98-107); CREATININE 0.44 mg/dL (0.55-1.02)
[2019-05-01] MEDS: KETOROLAC 30 MG/1 ML IV PRN (06:21)
[2019-05-01] MEDS: D5%-0.45% NACL 1,000 ML IV SCH (06:21)
[2019-05-01 06:59] VITALS: BP 124/77
[2019-05-01] MEDS: LACTULOSE 10 GM/15 ML UDC PO SCH (08:53)
[2019-05-01] MEDS ORDERED: MAGNESIUM SULFATE PMX 2GM/50ML 50 ML IV ONE (09:00)
[2019-05-01] MEDS ORDERED: CALCIUM GLUCONATE 4.6 MEQ in SODIUM CHLORIDE 0.9% 50 ML IV ONE (09:00)
[2019-05-01] MEDS ORDERED: POTASSIUM PHOSPHATE 44 MEQ in SODIUM CHLORIDE 0.9% 500 ML IV ONE (09:30)
[2019-05-01 12:24] VITALS: BP 169/98
== END 2019-05-01 14:40 | disposition home or self-care (01) | DRG 439 ==
LOC: ED 14:34 → EDIP 14:35 → ED 14:54 → 3N 15:50 → DCLOUNGE 05-01 14:20
PROVIDERS: ADMIT Family Medicine; ATTEND Family Medicine
DX: K85.20 Alcohol induced acute pancreatitis without necrosis or infection (principal); E87.2 Acidosis; F10.288 Alcohol dependence with other alcohol-induced disorder; D75.89 Other specified diseases of blood and blood-forming organs; E83.39 Other disorders of phosphorus metabolism; E83.51 Hypocalcemia; Y90.9 Presence of alcohol in blood, level not specified; I10 Essential (primary) hypertension; F17.210 Nicotine dependence, cigarettes, uncomplicated; Z88.6 Allergy status to analgesic agent; R73.9 Hyperglycemia, unspecified
CPT/HCPCS: 36415; 71045; 80053; 80069; 81001; 83690; 83735; 84100; 85025; 93005; 96361; 96374; 96375; 99285; G0378; J0610; J1170; J1885; J2405; J0360; J3475; J7030; J7040